=== PATIENT | female | born 1980 | race Caucasian/White ===

== ENCOUNTER 2025-01-20 11:55 | Emergency (ER) | payer OTHER ==
[~2025-01-20] VITALS: Ht 180.3 cm; Wt 61.1 kg
[2025-01-20] MEDS ORDERED: MAALOX MAXIMUM355 ML PO (12:07)
[2025-01-20 12:27] LABS: BASOPHILS 0.5 % (0.1-1.2); EOSINOPHILS 1.0 % (0.7-5.8); LYMPHOCYTES 20.2 % (19.3-51.7); MCH 30.7 PG (25.6-32.2); MCHC 33.3 g/dL (32.2-35.5); MCV 92.2 fL (79.4-94.8); MONOCYTES 3.6 % (4.7-12.5); NEUTROPHILS 74.5 % (34.0-71.1); RBC 4.72 M/uL (3.93-5.22)
[2025-01-20 12:41] LABS: BLOOD/HGB, URINE NEGATIVE (Negative); KETONE, URINE NEGATIVE (Negative); LEUK ESTERASE, URINE NEGATIVE (negative); NITRITE, URINE NEGATIVE (negative)
[2025-01-20 12:44] LABS: ALT (SGPT) 22.0 U/L (14-59); AST (SGOT) 18.0 U/L (15-37); GLOMERULAR FILTRATION RATE,EST 113.0 mL/min (>60); PROTEIN, TOTAL 7.5 g/dL (6.4-8.2); UREA NITROGEN 7.0 mg/dL (7-18)
[2025-01-20] MEDS ORDERED: MORPHINE SULFATE 4 MG/ML VIAL IV ONE (13:45)
[2025-01-20] MEDS ORDERED: HYDROCODONE/ACETA 5/325 TAB PO ONE (15:45)
[2025-01-20] MEDS ORDERED: ONDANSETRON 4 MG TAB ODT SL ONE (15:45)
[2025-01-20] MEDS ORDERED: ONDANSETRON ODT4 MG PO (15:47)
[2025-01-20] MEDS ORDERED: HYDROCODON-ACE1 EA10 PO (15:47)
[2025-01-20 16:00] VITALS: BP 98/74
== END 2025-01-20 16:00 | disposition home or self-care (01) ==
LOC: ED 11:55
PROVIDERS: Emergency Medicine
DX: R10.13 Epigastric pain (principal); Z96.49 Presence of other endocrine implants
CPT/HCPCS: 36415; 74177; 80053; 81003; 83690; 84703; 85025; 96375; 99284-25; A9270; J2270; J2405; Q9967

== ENCOUNTER 2025-02-25 23:26 | Inpatient (IN) | payer OTHER ==
[~2025-02-25] VITALS: Ht 180.3 cm; Wt 66.9 kg
[~2025-02-25 23:26] MED LIST: HYDROCODON-ACE1 EA10 PO; MAALOX MAXIMUM355 ML PO; ONDANSETRON ODT4 MG PO
[2025-02-25] MEDS ORDERED: PROBIOTIC1 EAC9 PO (23:39)
[2025-02-25] MEDS ORDERED: LACTATED RINGER'S 1,000 ML IV ONE (23:45)
[2025-02-25] MEDS ORDERED: KETOROLAC TROMETHAMINE 30 MG/ML VIAL IV ONE (23:45)
[2025-02-25] MEDS ORDERED: FAMOTIDINE 20 MG/ 2 ML VIAL IV ONE (23:45)
[2025-02-25 23:57] LABS: BASOPHILS 0.4 % (0.1-1.2); EOSINOPHILS 1.5 % (0.7-5.8); LYMPHOCYTES 18.2 % (19.3-51.7); MCH 30.8 PG (25.6-32.2); MCHC 33.9 g/dL (32.2-35.5); MCV 90.8 fL (79.4-94.8); MONOCYTES 4.6 % (4.7-12.5); NEUTROPHILS 74.9 % (34.0-71.1); RBC 4.77 M/uL (3.93-5.22)
[2025-02-26] VITALS (11 sets, daily range): BP systolic 93–106; BP diastolic 55–67
[2025-02-26 00:07] LABS: ALT (SGPT) 23 U/L (14-59); AST (SGOT) 16 U/L (15-37); GLOMERULAR FILTRATION RATE,EST 120 mL/min (>60); PROTEIN, TOTAL 7.7 g/dL (6.4-8.2); UREA NITROGEN 8 mg/dL (7-18)
[2025-02-26] MEDS ORDERED: HYDROmorphone HCL 1 MG/ML SYR IV PRN (00:30)
[2025-02-26] MEDS ORDERED: HYDROmorphone HCL 1 MG/ML SYR ONE (00:31)
[2025-02-26 00:41] LABS: BLOOD/HGB, URINE NEGATIVE (Negative); KETONE, URINE NEGATIVE (Negative); LEUK ESTERASE, URINE NEGATIVE (negative); NITRITE, URINE NEGATIVE (negative)
[2025-02-26] MEDS ORDERED: LACTATED RINGER'S 1,000 ML IV SCH ×3 (02:00→18:30)
[2025-02-26] MEDS ORDERED: MORPHINE SULFATE 4 MG/ML VIAL IV PRN ×3 (02:00→16:30)
--- NOTE | 2025-02-26 03:27 | NUR ---
PATIENT ADMITTED TO [facility] FROM ER. ORIENTED TO ROOM, PATIENT REPORTS 7/10 PAIN, GIVEN PRN PAIN MEDICATION PER REQUEST. PATIENT ABD IS TTP RUQ AND RLQ, NO DISTENTION. ACTIVE BOWEL TONES. RESPIRATIONS ARE EVEN AND UNLABORED, PATIENT ON TELE #9.
[2025-02-26] MEDS ORDERED: NICOTINE POLACRILEX 4 MG LOZENGE BUCCAL PRN (03:30)
--- NOTE | 2025-02-26 04:16 | NUR ---
PATIENT CALLED LETTING STAFF KNOW THAT SHE WENT TO THE RESTROOM TO VOID. THIS CONCRETE BUILDING ASSEMBLER IN TO THE ROOM. EMPTIED THE HAT WITH 150ML DARK YELLOW URINE. PATIENT IS ALREADY LAYING IN BED. IV PLUGGED IN.
--- NOTE | 2025-02-26 05:22 | NUR ---
CALL LIGHT ANSWERED, PRN PAIN MEDICATION ADMINISTERED FOR 9/10 PAIN PER PATIENT REQUEST. VS OBTAINED AND RECORDED, INTAKE AND OUTPUT DOCUMENTED. PATIENT REMAINS TENDER RUQ OF THE ABDOMEN BUT STATES IT DOES NOT RADIATE INTO HER ARMPIT ANYMORE. SHE DENIES ANY FURTHER NEEDS, CALL LIGHT IN REACH
[2025-02-26 05:41] LABS: BASOPHILS 0.7 % (0.1-1.2); EOSINOPHILS 2.5 % (0.7-5.8); LYMPHOCYTES 34.4 % (19.3-51.7); MCH 30.7 PG (25.6-32.2); MCHC 33.1 g/dL (32.2-35.5); MCV 92.8 fL (79.4-94.8); MONOCYTES 6.1 % (4.7-12.5); NEUTROPHILS 56.1 % (34.0-71.1); RBC 3.88 M/uL (3.93-5.22)
[2025-02-26 05:56] LABS: ALT (SGPT) 38.0 U/L (14-59); AST (SGOT) 34.0 U/L (15-37); GLOMERULAR FILTRATION RATE,EST 117.0 mL/min (>60); PROTEIN, TOTAL 5.9 g/dL (6.4-8.2); UREA NITROGEN 11.0 mg/dL (7-18)
--- NOTE | 2025-02-26 06:26 | NUR ---
ROUNDED ON PATIENT, PATIENT SLEEPING. RESPIRATIONS EVEN AND UNLABORED. IVF INFUSING WITHOUT DIFFICULTY. NO NEEDS, CALL LIGHT IN REACH
--- NOTE | 2025-02-26 07:17 | NUR ---
REPORT FROM JAIDA FRITZ.
--- NOTE | 2025-02-26 08:14 | NUR ---
MORNING ASSESSMENT IS COMPLETE. PATIENT REPORTS ABD PAIN 9/10 AND GIVEN 4MG OF IV MORPHINE. LR@200 IS INFUSING TO LEFT ARM, NEW BAG OF IVF HANGING. PATIENT IS OTHERWISE RESTING IN BED AND DENIES NEEDS. PATIENT WOULD LIKE INFORMATION ON PANCREATIC DIET/SUPPLEMENTS.
--- NOTE | 2025-02-26 09:32 | NUR ---
PATIENT REPORTS ABD PAIN IS 7/10 AFTER MEDICATION, DOWN FROM 9/10
[2025-02-26] MEDS ORDERED: ACETAMINOPHEN 325 MG TAB PO PRN (11:00)
--- NOTE | 2025-02-26 11:05 | NUR ---
INTO SEE PATIENT. PERSONAL HEALTH INFORMATION REVIEWED. PATIENT LIVES WITH AT [facility]. THEY JUST RECENTLY MOVED HERE FROM [place]. SHE STATED THEY ARE CURRENTLY TRYING TO GET HOUSE AND HOPING TO GET HOUSING THIS MONTH. GAVE HER INFORMATION ON THE [employer] [facility]. PATIENT DOES NOT USE ANY DME AND DOES DRIVE. GAVE HER FOOD PANTRY INFORMATION AND NUMBER TO CALL FOR [employer]. SHE SAID THEY HAD FOOD STAMPS IN [place] BUT JUST NEED TO SIGN UP AGAIN. ALSO GAVE HER INFORMATION FOR [employer] FOR RENT ASSISTANCE AND UTLITIES ASSISTANCE. STATES SHE HAS A PCP APPOINTMENT TO ESTABLISH CARE AT [facility] IN [place].
[2025-02-26] MEDS ORDERED: OXYCODONE HCL 5 MG TAB PO PRN (11:15)
--- NOTE | 2025-02-26 11:25 | NUR ---
SET PATIENT UP WITH A PCP AT [facility].
--- NOTE | 2025-02-26 11:27 | NUR ---
PATIENT IS SLEEPING, RESPIRATIONS ARE REGULAR.
[2025-02-26] MEDS ORDERED: PHARMACY RENAL DOSE ADJUSTMENT 1 DOSE MISC PO SCH (12:00)
--- NOTE | 2025-02-26 13:41 | NUR ---
PATIENT UP TO USE BATHROOM, TOOK IN 300ML OF CLEAR LIQUIDS, PATIENT VOMITED 300ML OF CLEARS. 4MG OF IV ZOFRAN GIVEN. 5MG PO OXYCODONE READY FOR PATIENT TO TAKE WHEN NAUSEA SUBSIDES.
--- NOTE | 2025-02-26 13:56 | NUR ---
PATIENT IN BED AT THIS TIME. PLATER BARREL CHARTED VITALS AND I&O'S. CALL LIGHT WITHIN REACH, NO FURTHER NEEDS.
--- NOTE | 2025-02-26 14:51 | NUR ---
PATIENT RESTING IN BED WITH EYES CLOSED. RESPIRATIONS EVEN AND UNLABORED. CALL LIGHT WITHIN REACH.
--- NOTE | 2025-02-26 15:50 | NUR ---
PATIENT RESTING IN BED WITH EYES CLOSED. RESPIRATIONS EVEN AND UNLABORED.
--- NOTE | 2025-02-26 16:21 | NUR ---
DR. ARRIAGA CHANGED PATIENT ORDERS. IVF IS LR @ 150ML/HR. COMPAZINE TO BE GIVEN WHEN PHARMACY VERIFIED.
--- NOTE | 2025-02-26 16:28 | NUR ---
PATIENT UP TO BATHROOM TO VOMIT SMALL AMOUNT. 10MG OF COMPAZINE FOR NAUSEA AND HEADACHE. PATIENT'S IS IN ROOM.
[2025-02-26] MEDS ORDERED: PROCHLORPERAZINE EDISYLATE 10 MG/2 ML VIAL IV ONE (16:30)
--- NOTE | 2025-02-26 17:44 | NUR ---
PATIENT IS SLEEPING WITH REGULAR RESPIRATIONS.
--- NOTE | 2025-02-26 18:32 | NUR ---
4MG OF IV MORPHINE GIVEN FOR 8/10 ABD PAIN. PATIENT REPORTS HEADACHE AND NAUSEA ARE IMPROVED AFTER COMPAZINE. PATIENT IS RESTING IN BED.
--- NOTE | 2025-02-26 19:22 | NUR ---
REPORT RECEIVED FROM DAY SHIFT RN. PT LYING IN BED RESTING WITH EYES CLOSED. RESPIRATIONS EVEN. WHITE BOARD UPDATED. CALL LIGHT IN REACH.
--- NOTE | 2025-02-26 20:34 | NUR ---
EVENING ASSESSMENT COMPLETE. PT REPORTS ABD PAIN 8/10 AND HEADACHE PAIN. NO PRN'S AVAILABLE. MD NOTIFIED. NEW TELEPHONE ORDERS RECEIVED VERIFIED WITH READBACK METHOD. PT DENIES NAUSEA. ABD SOFT. BOWEL TONES ACTIVE. PT NPO. IVF INFUSING PER ORDER. VS AND I&O OBTAINED. PT DENIES QUESTIONS OR CONCERNS. CALL LIGHT IN REACH.
[2025-02-26] MEDS ORDERED: MORPHINE SULFATE 4 MG/ML VIAL IV ONE (20:45)
[2025-02-26] MEDS ORDERED: ACETAMINOPHEN 1,000 MG/100 ML VIAL IV ONE (20:45)
--- NOTE | 2025-02-26 23:16 | NUR ---
PT RESTING IN BED WITH EYES CLOSED. RESPIRATIONS EVEN. CALL LIGHT IN REACH.
[2025-02-27] VITALS (11 sets, daily range): BP systolic 92–115; BP diastolic 52–79
--- NOTE | 2025-02-27 01:29 | NUR ---
CALL LIGHT ANSWERED. PT REPORTS ABD/HEADACHE PAIN 8/10 AND NAUSEA. PRN FOR N/V AND PAIN ADMIN PER EMAR. NEW BAG IVF INFUSING PER ORDER. VS AND I&O OBTAINED. ASSESSMENT UNCHANGED. PT DENIES FURTHER NEEDS. CALL LIGHT IN REACH.
--- NOTE | 2025-02-27 03:01 | NUR ---
PT RESTING ON RIGHT SIDE WITH EYES CLOSED. AWAKENS EASILY. SpO2 96% ON RA. HR 70'S. DENIES NEEDS. CALL LIGHT IN REACH.
--- NOTE | 2025-02-27 04:06 | NUR ---
PT RESTING IN BED WITH EYES CLOSED. RESPIRATIONS EVEN. CALL LIGHT IN REACH.
[2025-02-27 05:20] LABS: BASOPHILS 0.9 % (0.1-1.2); EOSINOPHILS 3.1 % (0.7-5.8); LYMPHOCYTES 33.0 % (19.3-51.7); MCH 31.1 PG (25.6-32.2); MCHC 33.4 g/dL (32.2-35.5); MCV 93.1 fL (79.4-94.8); MONOCYTES 4.6 % (4.7-12.5); NEUTROPHILS 58.1 % (34.0-71.1); RBC 3.50 M/uL (3.93-5.22)
--- NOTE | 2025-02-27 05:29 | NUR ---
LAB IN FOR MORNING DRAW. VS AND I&O OBTAINED. PT REPORTS 8/10 RUQ AND HEADACHE PAIN. PRN FOR PAIN ADMIN PER EMAR. NO C/O NAUSEA AT THIS TIME. NO FURTHER NEEDS. CALL LIGHT IN REACH.
[2025-02-27 05:30] LABS: GLOMERULAR FILTRATION RATE,EST 131.0 mL/min (>60); UREA NITROGEN 7.0 mg/dL (7-18)
[2025-02-27] MEDS ORDERED: LACTATED RINGER'S 1,000 ML IV SCH (06:20)
--- NOTE | 2025-02-27 08:31 | NUR ---
IN TO UPDATE WHITE BOARD. PATIENT IN BED RESTING WITH EYES CLOSED. CALL LIGHT IN REACH.
[2025-02-27] MEDS ORDERED: MAGNESIUM SULFATE 2 GM/50 ML BAG IV SCH (09:00)
--- NOTE | 2025-02-27 09:20 | NUR ---
Patient awake, alert and oriented x3, no acute distress. Patient reports 7/10 abdominal pain, no nausea. Admin morphine 4mg iv at this time. Encouraged patient to call if she has needs.
--- NOTE | 2025-02-27 09:29 | NUR ---
UR CLINICAL REVIEW: ZACKARY, MEETS INPT FOR PANCREATITIS IV ANALGESICS, IV ANTIEMETICS, IV FLUIDS, TREND LABS, CT POSITIVE FOR PANCREATITIS [facility] 02/26/2025 @ 1057 ORDER MATCHES REG SENDING CHART FOR REVIEW, AUTH PENDING. PLAN TO DC TO HOME WHEN MEDICALLY READY. 03/03/25
[2025-02-27] MEDS ORDERED: HYDROmorphone HCL 1 MG/ML SYR IV PRN (09:30)
--- NOTE | 2025-02-27 09:45 | NUR ---
MED REC COMPLETE
--- NOTE | 2025-02-27 10:14 | NUR ---
Patient reports n/v. Admin zofran 4mg iv at this time. Encouraged patient to wait a bit before she attempts eating ice chips, pt receptive to plan.
--- NOTE | 2025-02-27 10:55 | NUR ---
PATIENT SITTING UP IN BED AT THIS TIME. I&O'S DONE AND CHARTED. CALL LIGHT IN REACH. NO FURTHER NEEDS AT THIS TIME.
--- NOTE | 2025-02-27 11:10 | NUR ---
Patient sitting up in bed watching tv, no acute distress. Patient reports nausea has improved. Patient toleraing ice chips well. Scheduled magnesium started. No current needs, personal supplies and call light within reach.
--- NOTE | 2025-02-27 11:25 | NUR ---
Spoke with Anjelica. She denies needs. Cont. to have problems with housing. I gave her the phone number for [employer]. She has spoke with them in the past and they said they could not help. AFter further discussion this was when they were applying to get into the retirement. They are over income. I asked her to talk to them about assistance with housing and classes to buy a home. I attempted to call [facility]. Chava is out, I was requested to call back after 1 pm. I left a message asking if they can assist with housing at this time.
--- NOTE | 2025-02-27 12:30 | NUR ---
IN TO CHECK ON PATIENT, PT LAYING IN BED RESTING. DISCONTINUED IV TUBING MAGNESIUM IS DONE RUNNING. PATIENT NOW WITH SL. PATIENT GIVEN LUNCH TRAY, CLEAR LIQUIDS. DISCUSSED WITH PATIENT TO GO SLOW AND TAKE LITTLE SIPS TO PREVENT NAUSEA. PATIENT UNDERSTANDS. PATIENT HAS CALL LIGHT WITH IN REACH. PATIENT HAS NO NEEDS AT THIS TIME.
--- NOTE | 2025-02-27 13:35 | NUR ---
PATIENT IN BED AT THIS TIME. VITALS AND I&O'S DONE AND CHARTED. PATIENT REQUESTING NAUSEA MEDICATION, RN NOTIFIED. CALL LIGHT IN REACH. NO FURTHER NEEDS AT THIS TIME.L
--- NOTE | 2025-02-27 13:48 | NUR ---
Patient vomited approx 300ml clear emesis. Patient requesting pain medications for reported 9/10 abdominal pain. Patient encouraged to stop drinking fluids until she feels better, pt receptive to plan. Cool compress provided.
--- NOTE | 2025-02-27 15:05 | NUR ---
PATIENT RESTING ON HER SIDE WITH EYES CLOSED. CALL LIGHT WITH IN REACH.
--- NOTE | 2025-02-27 16:20 | NUR ---
PATIENT RESTING ON HER SIDE WITH EYES CLOSED. BREATHING EVEN. CALL LIGHT WITH IN REACH.
--- NOTE | 2025-02-27 16:46 | NUR ---
Admin dilaudid 0.5mg iv at this time for reports of 7/10 abdominal pain. Patient reports lessened nausea. Ice chips provided per pt request.
--- NOTE | 2025-02-27 17:44 | NUR ---
PATIENT SITTING UP IN BED WATCHING TV, VISITOR AT BEDSIDE. VITALS AND I&O'S DONE AND CHARTED. CALL LIGHT IN REACH. NO FURTHER NEEDS AT THIS TIME.
--- NOTE | 2025-02-27 19:25 | NUR ---
REPORT RECEIVED FROM DAY SHIFT RN. PT LYING IN BED ALERT AND ORIENTED. ICE CHIPS PROVIDED. NO FURTHER NEEDS. WHITE BOARD UPDATED. CALL LIGHT IN REACH.
--- NOTE | 2025-02-27 20:08 | NUR ---
EVENING ASSESSMENT COMPLETE. PT REPORTS RUQ/HEADACHE PAIN 02/18. PRN FOR PAIN ADMIN PER EMAR. PT DENIES NAUSEA. ISAIAH SMALL AMOUNTS OF CLEAR LIQUIDS. BOWEL TONES ACTIVE. PT REPORTS FLATUS. ABD SOFT. AT BEDSIDE. VS AND I&O OBTAINED. PT DENIES QUESTIONS OR CONCERNS. CALL LIGHT IN REACH.
--- NOTE | 2025-02-27 23:13 | NUR ---
PT C/O ABDOMINAL PAIN, MEDICATED WITH 0.5MG DILAUDID IVP. PT ALSO PROVIDED CRANBERRY JUICE. PT INSTRUCTED TO CALL FOR ASSISTANCE, SIDE RAILS UP X2, CALL GRANADOS IN REACH, BED IN LOW POSITION AND LOCKED.
[2025-02-28] VITALS (11 sets, daily range): BP systolic 93–112; BP diastolic 50–78
--- NOTE | 2025-02-28 00:47 | NUR ---
PT RESTING IN BED WITH EYES CLOSED. RESPIRATIONS EVEN. CALL LIGHT IN REACH.
--- NOTE | 2025-02-28 02:20 | NUR ---
CALL LIGHT ANSWERED. PT REPORTS 03/21 ABD CENTER ABD PAIN. PRN FOR PAIN ADMIN PER EMAR. WARM COMPRESS PROVIDED FOR COMFORT. ICE CHIPS GIVEN PER REQUEST. ASSESSMENT UNCHANGED. NO FURTHER NEEDS.
--- NOTE | 2025-02-28 03:40 | NUR ---
PT RESTING IN BED WITH EYES CLOSED. RESPIRATIONS EVEN. CALL LIGHT IN REACH.
[2025-02-28 05:32] LABS: BASOPHILS 0.6 % (0.1-1.2); EOSINOPHILS 3.3 % (0.7-5.8); LYMPHOCYTES 33.5 % (19.3-51.7); MCH 30.7 PG (25.6-32.2); MCHC 33.2 g/dL (32.2-35.5); MCV 92.5 fL (79.4-94.8); MONOCYTES 5.7 % (4.7-12.5); NEUTROPHILS 56.6 % (34.0-71.1); RBC 3.98 M/uL (3.93-5.22)
[2025-02-28 05:42] LABS: GLOMERULAR FILTRATION RATE,EST 122.0 mL/min (>60); UREA NITROGEN 5.0 mg/dL (7-18)
--- NOTE | 2025-02-28 06:05 | NUR ---
PT REPORTS 9/10 "SORENESS" IN CENTER OF ABD AND NAUSEA. PRN FOR PAIN AND N/V ADMIN PER EMAR. CLEAR LIQUIDS PROVIDED. PT TAKING SIPS OF WARM TEA. WARM COMPRESS PROVIDED FOR ABD. NO FURTHER NEEDS.
--- NOTE | 2025-02-28 07:51 | NUR ---
Patient resting in bed, eyes closed, respiration non labored. Personal supplies and call light within reach.
[2025-02-28] MEDS ORDERED: DEXTROSE 50% 50 ML SYR IV ONE (08:15)
--- NOTE | 2025-02-28 09:30 | NUR ---
Admin 0.5mg dilaudid iv for reports of 7/10 abdominal pain. Patient denies nausea.
--- NOTE | 2025-02-28 09:40 | NUR ---
ALERT AND ORIENTE DIN BED. STATES SHE IS FEELING A LITTLE BETTER TODAY AND HAS PERIODS OF NOT FEELING WELL STILL. DISCUSSED HOUSING DIFFICULTIES. PHONE NUMBER FOR [facility] PROVIDED. INFORMED HER THEY CURRENTLY HAVE NO ROOMS, BUT IT WOULD BE POTENTIALLY BENEFICIAL TO CONTINUE TO REACH OUT. DENIES OTHER NEEDS AT THIS TIME.
[2025-02-28] MEDS ORDERED: OXYCODONE HCL 5 MG TAB PO PRN (13:15)
--- NOTE | 2025-02-28 13:32 | NUR ---
VISITED DURING SPIRITUAL CARE ROUNDS. PT APPEARED TO BE SLEEPING. DID NOT DISTURB. PROVIDED PRAYER.
[2025-02-28] MEDS ORDERED: IBLOOD GLUCOSE TEST STRIP 1 EA TEST VI SCH (14:00)
--- NOTE | 2025-02-28 15:27 | NUR ---
IN TO CHECK ON PT, PT RESTING ON HER SIDE, EYES OPEN. DISCUSSED WITH PT SHE HAS BEEN PRESCRIBED PO PAIN MEDICATION. PT UNDERSTANDS AND REMEMBERS DISCUSSING THIS WITH THE DOCTOR. EXPLAINED AT HER NEXT PAIN MEDICATION REQUEST WE WILL USE THE PO. PT IS A LITTLE EARLY FOR PAIN MEDICATION RIGHT NOW, BUT ENCOURAGED PT TO USE CALL LIGHT IF NEEDED. PT DID EAT HER POPSICLE AND DENIES NAUSEA. PT HAS NO NEEDS AT THIS TIME.
--- NOTE | 2025-02-28 16:02 | NUR ---
Admin oxycodone 5mg po and zofran 4mg iv for reports of nausea nd 5/10 abdominal pain.
--- NOTE | 2025-02-28 19:55 | NUR ---
PT IN BED WATCHING TV, AT BEDSIDE. VERBALIZED FEELING BETTER AFTER BEING ABLE TO KEEP DOWN SOME ICECREAM. DENIES NEED AT THIS TIME. CALL LIGHT IN REACH.
--- NOTE | 2025-02-28 20:20 | NUR ---
PT IN BED, AT BED SIDE. VITAL SIGNS TAKEN AND RECORDED. ACCUCHECK DONE. DENIES NEED AT THIS TIME. CALL LIGHT IN REACH.
--- NOTE | 2025-02-28 22:30 | NUR ---
CALL LIGHT ANSWERED. PATIENT REPORTS 9/10 ABD PAIN, REQUESTING PAIN MEDICATION. PRN PAIN MEDICATION ADMINISTERED PER ORDER. PATIENT DENIES ANY FURTHER NEEDS, CALL LIGHT IN REACH
--- NOTE | 2025-02-28 23:34 | NUR ---
PT RESTING IN BED, VERBALIZED PAIN HAS GONE DOWN TO 6/10 AFTER PAIN MEDICATION, HOT PACK PROVIDED PER PT REQUEST. DENIES NEEDS, CALL LIGHT IN REACH.
--- NOTE | 2025-03-01 02:20 | NUR ---
ROUNDED ON PATIENT, PATIENT RESTING WITH EYES CLOSED, RESPIRATIONS EVEN AND UNLABORED. WOKE TO OBTAIN CBG. PATIENT AMBULATED TO RESTROOM WITHOUT ASSISTANCE, BACK TO BED WITHOUT DIFFICULTY. NO FURTHER NEEDS, CALL LIGHT IN REACH
--- NOTE | 2025-03-01 03:45 | NUR ---
PT RESTING IN BED. RESPIRATIONS EVEN AND UNLABORED. NO NEEDS NOTED AT THIS TIME. CALL LIGHT IN REACH.
[2025-03-01 05:31] LABS: GLOMERULAR FILTRATION RATE,EST 126.0 mL/min (>60); UREA NITROGEN 6.0 mg/dL (7-18)
[2025-03-01 05:46] VITALS: BP 100/53
[2025-03-01 05:48] VITALS: BP 100/53
[2025-03-01 06:05] LABS: BASOPHILS 0.7 % (0.1-1.2); EOSINOPHILS 4.1 % (0.7-5.8); LYMPHOCYTES 30.9 % (19.3-51.7); MCH 30.5 PG (25.6-32.2); MCHC 33.5 g/dL (32.2-35.5); MCV 91.1 fL (79.4-94.8); MONOCYTES 6.6 % (4.7-12.5); NEUTROPHILS 57.5 % (34.0-71.1); RBC 3.93 M/uL (3.93-5.22)
--- NOTE | 2025-03-01 06:07 | NUR ---
PT RESTING IN BED, VITAL SIGNS TAKEN AND RECORDED. INTAKE AND OUTPUT RECORDED. PT REPORTED TOLERATING PO INTAKE. STILL REPORTS EPIGASTRIC DISCOMFORT BUT MORE TOLERABLE. DENIES NEEDS, CALL LIGHT IN REACH.
--- NOTE | 2025-03-01 07:11 | NUR ---
REPORT RECEIVED FROM LAM THURSTON. PATIENT IN BED, EYES CLOSED, CHEST RISE EVEN AND UNLABORED. CALL LIGHT AND PERSONAL BELONGINGS IN REACH OF PATIENT. NO APPARENT NEEDS NOTED AT THIS TIME.
--- NOTE | 2025-03-01 08:30 | NUR ---
PATIENT IN BED WITH HOB RAISED, EYES OPEN, CHEST RISE EVEN AND UNLABORED. PATIENT TEARFUL. PATIENT REPORTS SHE HAS QUESTIONS REGARDING PAIN MEDICATION, DIET, AND PLAN FOR DISCAHRGE. THERAPEUTIC COMMUNICATION AND EUDCATION PROVIDED. PATIENT VERBALIZED UNDERSTANDING AND DENIES FURTHER QUESTIONS AT THIS TIME. PATIENT REPORTS 8/10 PAIN, PRN PAIN MEDICATION ADMINISTERED AT PATIENT'S REQUEST. PATIENT DENIES FURTHER CONCERNS AT THIS TIME.
[2025-03-01 09:22] VITALS: BP 111/67
--- NOTE | 2025-03-01 09:30 | NUR ---
PATIENT IN BED WITH HOB RAISED, EYES OPEN, CHEST RISE EVEN AND UNLABORED. ASSESMENT COMPLETED. PATIENT DENIES CONCERNS AT THIS TIME. PATIENT REPORTS PAIN 5/10 AND NOTES SHE HAD JUST GOTTEN OUT OF BED. CALL LIGHT AND PERSONAL BELONGINGS IN REACH OF PATIENT.
[2025-03-01 09:31] VITALS: BP 111/67
--- NOTE | 2025-03-01 09:55 | NUR ---
INTO SEE PATIENT. PATIENT TO GO WITH AT TIME OF DISCHARGE. PATIENT HAS ALL OF THE RESOURCES THE CM TEAM HAS GIVEN THEM. NO QUESTIONS AT THIS TIME.
--- NOTE | 2025-03-01 10:44 | NUR ---
PATIENT SAID SHE TOOK A SHOWER LAST NIGHT. THIS MORING SHE SAID SHE DID HER AM CARE. SHE SAID ALSO IF SHE GETS TO GO HOME TODAY SHE WILL TAKE A SHOWER AT HOME. PATIENT IS INDEPENDENT.
--- NOTE | 2025-03-01 10:45 | NUR ---
PATIENT IN BED, EYES OPEN, CHEST RISE EVEN AND UNLABORED. PATIENT REPORTS SHE WOULD LIKE TO KEEP HER CURTIANS CLOSED AT THIS TIME. PATIENT INQUIRES ABOUT DIETARY CHANGES TO LOW FAT DIET. PATIENT EDUCATION PROVIDED ON DIETARY RESOURCES OUTSIDE OF HOSPITAL AND [facility], WRITTEN EDUCATIONAL INFORMATION AT BEDSIDE. PATIENT REPORTS WRITTEN RESOURCE WAS PROVIDED AT ADMISSION. PATIENT VERBALIZED UNDERSTANDING AND DENIES FURTHER QUESTIONS AT THIS TIME. PRN PAIN MEDICATION PROVIDED, PATIENT REPORTS 5/10 PAIN. PATIENT EDUCATION PROVIDED REGARDING PAIN MANAGMENT AFTER DISCHARGE. PATIENT DENIES FURTHER CONCERNS AT THIS TIME. CALL LIGHT AND PERSONAL BELONGINGS IN REACH OF PATIENT.
--- NOTE | 2025-03-01 12:33 | NUR ---
PATIENT IN BED, EYES OPEN, CHEST RISE EVEN AND UNLABORED. PATIENT DENIES CONCERNS AT THIS TIME. CALL LIGHT AND PERSONAL BELONGINGS IN REACH OF PATIENT. PATIENT EDUCATION PROVIDED TO NOTIFY NURSING ON HOW PATIENT TOLERATES REGULAR DIET AT LUNCH. PATIENT VERBALIZED UNDERSTANDING.
--- NOTE | 2025-03-01 12:57 | NUR ---
PATIENT IN BED, EYES OPEN, CHEST RISE EVEN AND UNLABORED. PATIENT DENIES CONCERNS AT THIS TIME. PATIENT ATE 100% OF REGULAR DIET, REPORTS SHE FEELS "GOOD" RIGHT NOW. PATIENT IS LOOKING FORWARD TO DISCHARGE AND DENIES CONCERNS AT THIS TIME. CALL LIGHT AND PERSONAL BELONGINGS IN REACH OF PATIENT.
[2025-03-01] MEDS ORDERED: OXYCODONE HCL5 M1 PO (13:03)
[2025-03-01 13:35] VITALS: BP 102/60
[2025-03-01 13:39] VITALS: BP 102/60
--- NOTE | 2025-03-01 13:40 | NUR ---
PATIENT IN BED, EYES OPEN, CHEST RISE EVEN AND UNLABORED. REVIEWED DISCHARGE ORDERS ARE IN PLACE. PATIENT VERBALIZED UNDERSTANDING. PATIENT REPORTS HER IS ON THE WAY. PATIENT REPORTS HER WILL PICK HER UP AND DRIVE HER HOME. VITAL SIGNS AND MEWS COMPLETED. PATIENT DENIES CONCERNS AT THIS TIME. CALL LIGHT AND PERSONAL BELONGINGS IN REACH OF PATIENT.
--- NOTE | 2025-03-01 14:25 | NUR ---
TOOK PATIENT'S IV OUT.
--- NOTE | 2025-03-01 14:39 | NUR ---
PATIENT SITTING AT SIDE OF BED, EYES OPEN, CHEST RISE EVEN AND UNLABORED. AT BEDSIDE. PATIENT REPORTS SHE IS READY FOR DISCHARGE. IV HAS BEEN REMOVED. THIS RN REVIEWED DISCAHRGE INFORMATION AND TEACHING WITH AND PATIENT. THEY VERBALIZED UNDERSTANDING AND DENY QUESTIONS AT THIS TIME. PATIENT SIGNATURE PAGE COMPLETE. DISCHARGE INFORMATION WITH PATIENT. PATIENT OFF FLOOR WITH QUALITY CONTROL ENGINEER FOR DISCHARGE.
== END 2025-03-01 14:37 | disposition home or self-care (01) | DRG 438 ==
LOC: ED 23:26 → MS 23:28
PROVIDERS: Internal Medicine; ADMIT Student in an Organized Health Care Education/Training Program; ATTEND Student in an Organized Health Care Education/Training Program
DX: K85.80 Other acute pancreatitis without necrosis or infection (principal); I81 Portal vein thrombosis; I87.1 Compression of vein; K86.1 Other chronic pancreatitis; F17.210 Nicotine dependence, cigarettes, uncomplicated; Z96.89 Presence of other specified functional implants
CPT/HCPCS: 36415; 74177; 80048; 80053; 81003; 83690; 83735; 84703; 85025; 96374; 96375; 96376; 99285-25; A9270; J0131; J0780; J1171; J1885; J2270; J2405; J3475; J7121

== ENCOUNTER 2025-03-24 15:48 | Emergency (ER) | payer OTHER ==
[~2025-03-24] VITALS: Ht 180.3 cm; Wt 61.0 kg
[~2025-03-24 15:48] MED LIST changes: +OXYCODONE HCL5 M1 PO; +PROBIOTIC1 EAC9 PO
--- OUTSIDE RECORDS SUMMARY | 2025-03-24 15:49 | XMS ---
PreManage Notification: ZAN MAGUIRE Security Dental Technician Apprentice Events No recent Security Events currently on file CRITERIA MET - [facility] - 2 Visits in 30 Days CARE PROVIDERS JODY SHORE [facility] Current PHONE: Unknown MATTY RODRÍGUEZ Nurse Practitioner: Family Current PHONE: [phone] [facility]/Center: [facility] ([facility]) PHONE: [phone] Jay has no Care Guidelines for this patient. E.D. VISIT COUNT (12 MO.) 3 [facility] Page 2 [facility] [place] TOTAL 5 NOTE: Visits indicate total known visits. ED/UCC VISIT TRACKING (12 MO.) 03/24/2025 15:49 [facility] [place] TYPE: Emergency COMPLAINT: - ABDOMINAL PAIN 02/25/2025 23:27 [facility] [place] TYPE: Emergency COMPLAINT: - ABD PAIN 01/20/2025 11:[address] [facility] [place] TYPE: Emergency COMPLAINT: - ABDOMINAL PAIN DIAGNOSES: - Epigastric pain - Presence of other endocrine implants 10/17/2024 13:27 [facility] [place] TYPE: Emergency DIAGNOSES: - Anxiety disorder, unspecified - Palpitations - Tachycardia, unspecified - Headache - Vision Problems, Hands and feet cold 10/12/2024 21:48 [facility] [place] TYPE: Emergency DIAGNOSES: - Acute pancreatitis without necrosis or infection, unspecified - Diarrhea, unspecified - Nausea with vomiting, unspecified - Abdominal Pain - Pancreatitis Flare up: abdominal pain INPATIENT VISIT TRACKING (12 MO.) 02/26/2025 10:[address] [facility] [place] TYPE: Medical Surgical COMPLAINT: - ACUTE ON CHRONIC PANCREATITIS DIAGNOSES: - Compression of vein - Compression of vein - Nicotine dependence, cigarettes, uncomplicated - Nicotine dependence, cigarettes, uncomplicated - Other acute pancreatitis without necrosis or infection - Other chronic pancreatitis - Other chronic pancreatitis - Portal vein thrombosis - Portal vein thrombosis - Presence of other specified functional implants - Presence of other specified functional implants [email or web address]
[2025-03-24 17:19] LABS: ALT (SGPT) 19 U/L (14-59); AST (SGOT) 16 U/L (15-37); GLOMERULAR FILTRATION RATE,EST 115 mL/min (>60); PROTEIN, TOTAL 7.4 g/dL (6.4-8.2); UREA NITROGEN 9 mg/dL (7-18)
[2025-03-24 17:24] LABS: BASOPHILS 0.5 % (0.1-1.2); EOSINOPHILS 0.8 % (0.7-5.8); LYMPHOCYTES 13.6 % (19.3-51.7); MCH 30.6 PG (25.6-32.2); MCHC 34.1 g/dL (32.2-35.5); MCV 89.9 fL (79.4-94.8); MONOCYTES 4.2 % (4.7-12.5); NEUTROPHILS 80.6 % (34.0-71.1); RBC 3.95 M/uL (3.93-5.22)
[2025-03-24] MEDS ORDERED: KETOROLAC TROMETHAMINE 15 MG/ML VIAL IV ONE (18:00)
[2025-03-24] MEDS ORDERED: SODIUM CHLORIDE 0.9% 1,000 ML IV ONE (18:00)
[2025-03-24] MEDS ORDERED: HYDROmorphone HCL 1 MG/ML SYR IV PRN (18:00)
[2025-03-24] MEDS ORDERED: HYDROCODON-ACE1 EA10 PO ×2 (19:15)
[2025-03-24] MEDS ORDERED: ONDANSETRON 4 MG HOME.PACK SL ONE (19:15)
[2025-03-24] MEDS ORDERED: HYDROCODONE BIT/ACETAMINOPHEN 5/325 MG 1 TAB HOME.PACK PO ONE (19:15)
[2025-03-24 19:35] VITALS: BP 106/79
== END 2025-03-24 19:39 | disposition home or self-care (01) ==
LOC: ED 15:48
PROVIDERS: Emergency Medicine
DX: K85.90 Acute pancreatitis without necrosis or infection, unspecified (principal); Z79.899 Other long term (current) drug therapy
CPT/HCPCS: 36415; 80053; 83690; 84703; 85025; 96374; 96375; 99284-25; J1171; J1885; J2405; J7030

== ENCOUNTER 2025-03-26 08:32 | Inpatient (IN) | payer OTHER ==
[~2025-03-26] VITALS: Ht 180.3 cm; Wt 60.6 kg
--- OUTSIDE RECORDS SUMMARY | 2025-03-26 08:33 | XMS ---
PreManage Notification: ZAN MAGUIRE Security Braille Typist Events No recent Security Events currently on file CRITERIA MET - 6 ED Visits in 6 Months - [facility] - 2 Visits in 30 Days CARE PROVIDERS JODY SHORE [facility] Current PHONE: Unknown MATTY RODRÍGUEZ Nurse Practitioner: Family Current PHONE: [phone] [facility]/Center: [facility] ([facility]) PHONE: [phone] Jay has no Care Guidelines for this patient. E.D. VISIT COUNT (12 MO.) 4 HARPAL Page 2 [facility] [place] TOTAL 6 NOTE: Visits indicate total known visits. ED/UCC VISIT TRACKING (12 MO.) 03/26/2025 08:32 [facility] [place] TYPE: Emergency COMPLAINT: - ABDOMINAL PAIN 03/24/2025 15:49 [facility] [place] TYPE: Emergency COMPLAINT: - ABDOMINAL PAIN 02/25/2025 23:27 [facility] [place] [place] TYPE: Emergency COMPLAINT: - ABD PAIN 01/20/2025 11:56 [facility] [place] TYPE: Emergency COMPLAINT: - ABDOMINAL PAIN DIAGNOSES: - Epigastric pain - Presence of other endocrine implants 10/17/2024 13:27 [facility] [place] TYPE: Emergency DIAGNOSES: - Anxiety disorder, unspecified - Palpitations - Tachycardia, unspecified - Headache - Vision Problems, Hands and feet cold 10/12/2024 21:48 [facility] [place] TYPE: Emergency DIAGNOSES: - Acute pancreatitis [...] - Presence of other specified functional implants [email or web address]
[2025-03-26] MEDS ORDERED: SODIUM CHLORIDE 0.9% 1,000 ML IV ONE (09:15)
[2025-03-26] MEDS ORDERED: HYDROmorphone HCL 1 MG/ML SYR IV PRN ×2 (09:15→12:45)
[2025-03-26] MEDS ORDERED: ONDANSETRON ODT4 MG PO (09:19)
[2025-03-26 09:29] LABS: BASOPHILS 0.3 % (0.1-1.2); EOSINOPHILS 0.4 % (0.7-5.8); LYMPHOCYTES 6.2 % (19.3-51.7); MCH 30.6 PG (25.6-32.2); MCHC 33.5 g/dL (32.2-35.5); MCV 91.4 fL (79.4-94.8); MONOCYTES 4.7 % (4.7-12.5); NEUTROPHILS 88.0 % (34.0-71.1); RBC 4.05 M/uL (3.93-5.22)
[2025-03-26 09:54] LABS: ALT (SGPT) 15.0 U/L (14-59); AST (SGOT) 11.0 U/L (15-37); GLOMERULAR FILTRATION RATE,EST 119.0 mL/min (>60); PROTEIN, TOTAL 7.0 g/dL (6.4-8.2); UREA NITROGEN 7.0 mg/dL (7-18)
[2025-03-26] MEDS ORDERED: HYDROmorphone HCL 1 MG/ML SYR IV ONE (10:15)
[2025-03-26 10:52] LABS: BLOOD/HGB, URINE TRACE-I (Negative); KETONE, URINE >=80 (Negative); LEUK ESTERASE, URINE NEGATIVE (negative); NITRITE, URINE NEGATIVE (negative)
[2025-03-26 11:16] LABS: BACTERIA, URINE NONE SEEN /hpf (negative); CASTS, URINE NONE SEEN \\lpf; CRYSTALS, URINE NONE SEEN (0-1+); EPITHELIAL CELLS, URINE SQUAMOUS 4+ /lpf (0-1+); REFLEX CULTURE, URINE No (No)
[2025-03-26] MEDS ORDERED: SODIUM CHLORIDE 0.9% 1,000 ML IV SCH (12:30)
[2025-03-26] MEDS ORDERED: ACETAMINOPHEN 325 MG TAB PO PRN (12:30)
[2025-03-26] MEDS ORDERED: PANTOPRAZOLE SODIUM 40 MG TABEC PO SCH (12:36)
--- NOTE | 2025-03-26 13:45 | NUR ---
PT ARRIVED TO ROOM VIA STRETCHER FROM ED. PT ABLE TO AMBULATE TO BED FROM STRETCHER. C/O 10 ABDOMINAL PAIN RADIATING TO BACK. PT MEDICATED WITH 1MG IVP DILAUDID. PT DENIES NAUSEA AT THIS TIME. PROVIDED ORAL PPI ORDERED. PT ORIENTED TO ROOM AND CALL GRANADOS. SIDE RAILS UP X2, BED IN LOW POSITION AND LOCKED. PT INSTRUCTED TO CALL FOR ASSISTANCE.
[2025-03-26 13:54] VITALS: BP 102/61
--- NOTE | 2025-03-26 14:15 | NUR ---
INTO SEE PATIENT. PERSONAL HEALTH INFORMATION REVIEWED. PATIENT LIVES WITH KENDRA AT THE [facility]. THEY HAVE BEEN LOOKING FOR HOUSING. STATES SHE WAS GOING TO PUT AN APPLICATION IN THIS WEEK ON WEDNESDAY FOR AN APARTMENT. 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 DOES NOT USE ANY DME. SHE DRIVES. PATIENT HAS AN APPOINTMENT TO ESTABLISH CARE WITH A PCP ON 03/29/25.
--- NOTE | 2025-03-26 15:30 | NUR ---
PT IS AWAKE IN BED, DENIES NEEDS AT THIS TIME. CALL LIGHT IN REACH
[2025-03-26 17:31] VITALS: BP 105/65
--- NOTE | 2025-03-26 17:36 | NUR ---
PT C/O PAIN 03/21 TO ABDOMEN/BACK. PT MEDICATED WITH 1MG DILAUDID IVP. CALL GRANADOS IN REACH, BED IN LOW POSITION AND LOCKED, SIDERAILS UP X2. PT INSTRUCTED TO CALL FOR ASSISTANCE PRN.
[2025-03-26 18:14] VITALS: BP 105/65
--- NOTE | 2025-03-26 18:51 | NUR ---
PT RESTING IN BED AWAKE. DENIES NEEDS. CALL LIGHT IN REACH.
--- NOTE | 2025-03-26 19:42 | NUR ---
REPORT RECEIVED FROM DAY SHIFT RN. PT LYING IN BED ALERT AND ORIENTED. DENIES NEEDS. WHITE BOARD UPDATED. CALL LIGHT IN REACH.
[2025-03-26 21:09] VITALS: BP 102/54
[2025-03-26 21:11] VITALS: BP 102/54
--- NOTE | 2025-03-26 21:30 | NUR ---
EVENING ASSESSMENT COMPLETE. PT REPORTS ABD PAIN 9/10 AND NAUSEA. PRN'S ADMIN PER EMAR. NEW BAG IVF INFUSING WNL. PT UP TO BR TO VOID 150 ML CONCENTRATED URINE. GAIT STEADY. BACK TO BED, ISAIAH WELL. VS AND I&O OBTAINED. PT DENIES QUESTIONS OR CONCERNS. CALL LIGHT IN REACH.
[2025-03-27] VITALS (10 sets, daily range): BP systolic 92–103; BP diastolic 46–59
--- NOTE | 2025-03-27 00:29 | NUR ---
PT AWAKE IN BED. UP TO BR TO VOID. DENIES NEEDS. CALL LIGHT IN REACH.
--- NOTE | 2025-03-27 02:15 | NUR ---
PT RESTING IN BED WITH EYES CLOSED. AWAKENS EASILY. VS AND I&O OBTAINED. PT REPORTS ABD PAIN 02/18. PRN FOR PAIN ADMIN. NO C/O NAUSEA AT THIS TIME. ASSESSMENT UNCHANGED. PT DENIES NEEDS. CALL LIGHT IN REACH.
--- NOTE | 2025-03-27 04:10 | NUR ---
PT RESTING IN BED WITH EYES CLOSED. RESPIRATIONS EVEN. CALL LIGHT IN REACH.
[2025-03-27 05:24] LABS: BASOPHILS 0.7 % (0.1-1.2); EOSINOPHILS 2.9 % (0.7-5.8); LYMPHOCYTES 30.9 % (19.3-51.7); MCH 31.0 PG (25.6-32.2); MCHC 33.1 g/dL (32.2-35.5); MCV 93.6 fL (79.4-94.8); MONOCYTES 6.2 % (4.7-12.5); NEUTROPHILS 59.0 % (34.0-71.1); RBC 3.26 M/uL (3.93-5.22)
--- NOTE | 2025-03-27 05:40 | NUR ---
LAB IN FOR MORNING DRAW. VS OBTAINED. PT REPORTS PAIN IS TOLERABLE AT THIS TIME. PT DENIES NEEDS. CALL LIGHT IN REACH.
[2025-03-27 05:42] LABS: ALT (SGPT) 13.0 U/L (14-59); AST (SGOT) 10.0 U/L (15-37); GLOMERULAR FILTRATION RATE,EST 128.0 mL/min (>60); PROTEIN, TOTAL 5.6 g/dL (6.4-8.2); UREA NITROGEN 6.0 mg/dL (7-18)
[2025-03-27] MEDS ORDERED: POTASSIUM BICARBONATE/CIT AC 20 MEQ TABEF PO ONE (06:30)
--- NOTE | 2025-03-27 06:42 | NUR ---
PT UP TO BR TO VOID. BACK TO BED, ISAIAH WELL. REPORTS ABD PAIN 03/21. PRN FOR PAIN ADMIN. SCHEDULED MEDS GIVEN. NO FURTHER NEEDS.
--- NOTE | 2025-03-27 07:06 | NUR ---
VERBAL REPORT RECIVED BY LAM DOMINGUEZ. PT SITTING UP IN BED AWAKE. NO NEEDS AT THIS TIME. CALL LIGHT IN REACH.
--- NOTE | 2025-03-27 09:13 | NUR ---
IN THE ROOM WITH PATIENT. DR. GRANADOS DISCUSSING POC WITH PATIENT AND FAMILY. RECIVED VERBAL ORDERS FROM FOR CLEAR LIQUID DIET AT THIS TIME, WILL ADVANCE IF TOLERATED. CALL LIGHT IN REACH. NO FURTHER NEEDS AT THIS TIME.
--- NOTE | 2025-03-27 09:38 | NUR ---
UR CLINICAL REVIEW: MCG-PER MCG REVIEW MEETS INPT FOR ABD PAIN WITH NEED FOR BOWEL REST AND IVF. [facility] 03/26/25 @ 1237 ORDER MATCHES REG CLINICALS FAXED TO [facility] FOR AUTH REVIEW DISCHARGE TO HOME WHEN STABLE. ADD 03/28/25 03/28/25 DC REVIEW
--- NOTE | 2025-03-27 09:43 | NUR ---
MORNING LABS SHOWED GLUCOSE OF 59. CHECKED BS AT THIS TIME IT IS 52. 240ML OF APPLE JUICE PROVIDED AT THIS TIME. PATIENT STATES "THIS IS NORMAL FOR ME" NOTIFIED, NO NEW ORDERS AT THIS TIME. DIETARY NOTFIED TO BRING UP CLEAR LIQUID TRAY AT THIS TIME.
[2025-03-27] MEDS ORDERED: IBLOOD GLUCOSE TEST STRIP 1 EA TEST VI ONE (09:45)
--- NOTE | 2025-03-27 10:00 | NUR ---
Spoke with Anjelica and her so Gibran. They cont. to struggle financially. They are both working. They live between hotels and their car. They plan to remain in their car x 1 week to save money for a deposit. They are looking for housing. Pt is feeling better today and will start clear liq today. May be able to dc tomorrow if she is able to tolerate eating. Pt cont. with needs for housing. They are over income and do not qualify for low income housing. Pts spouse is upset as he has a dog and cat in the car and he spends time in the car. He complains security keeps asking him to leave as they believe he is homeless. I let him know I will pass this on to the warehouse packaging supervisor and management. Pt denies needs a this time. Pts housing issues was discussed with other CM. Calls were made, there is no openings at this time that any of us can find that would not require a substantial deposit.
--- NOTE | 2025-03-27 10:56 | NUR ---
PATIENT GIVEN PO PROTONIX AND 1MG OF IV DILAUDID FOR 9/10 ABDOMINAL PAIN.
--- NOTE | 2025-03-27 11:14 | NUR ---
IN ROOM WITH PATIENT.MORNING ASSESSMENT COMPLETE. EDUCATED ON SIGNS OF HYPOGLYCEMIA, PATIENT VERBALIZES UNDERSTANDING. IVF RUNNNING. PATIENTS SITTING UP WATCHING TV. CALL LIGHT IN REACH.
[2025-03-27] MEDS ORDERED: PHARMACY RENAL DOSE ADJUSTMENT 1 DOSE MISC PO SCH (12:00)
--- NOTE | 2025-03-27 12:10 | NUR ---
PATIENT UP IN BED EATING LUNCH, WATCHING TV. PATIENT HAS NO REQUESTS AT THIS TIME. CALL LIGHT IN REACH.
--- NOTE | 2025-03-27 12:30 | NUR ---
Elvia Matias stopped by our office. She issued a parking pass and a visitor pass for pts spouse. She also has sent emails to friends who manage apartments to check for apartments for this pt. Family discussed with her their concerns for housing.
--- NOTE | 2025-03-27 13:26 | NUR ---
ANSWERED CALL LIGHT. NEW IV BAG STARTED. PT RESTING IN BED. CALL LIGHT WITH IN REACH. NO NEEDS AT THIS TIME.
--- NOTE | 2025-03-27 13:45 | NUR ---
PT RESTING IN BED AWAKE, BREATHING OH AND UNLABORED . CALL LIGHT IN REACH. NO NEEDS AT THIS TIME.
--- NOTE | 2025-03-27 14:41 | NUR ---
IN THE ROOM PATIENT COMPLAINS OF 8/10 LEFT ABDOMINAL PAIN. PATIENT RECIVED PAIN PILLS (SEE EMAR). PATIENT HAS NO FURTHER NEEDS AT THIS TIME. CALL LIGHT IN REACH.
--- NOTE | 2025-03-27 18:20 | NUR ---
PT AWAKE IN BED, ABD PAIN 8/10, PRN PAIN MEDICATION ADMINISTERED (PER EMAR). WAS UNABLE TO EAT DINNER DUE TO CONCERNS OF BEING FLARED UP. SANDWICH BOX PROVIDED AND SHADY. NO FURTHER NEEDS AT THIS TIME. CALL LIGHT IN REACH
--- NOTE | 2025-03-27 19:37 | NUR ---
REPORT RECEIVED FROM DAY SHIFT RN. PT LYING IN BED ALERT AND ORIENTED. DENIES NEEDS. WHITE BOARD UPDATED. CALL LIGHT IN REACH.
--- NOTE | 2025-03-27 20:24 | NUR ---
EVENING ASSESSMENT COMPLETE. PT REPORTS SLIGHT NAUSEA. PRN FOR N/V ADMIN PER EMAR. PT REPORTS ABD PAIN TOLERABLE. BOWEL TONES ACTIVE. ABD SOFT. VS AND I&O OBTAINED. PT DENIES QUESTIONS OR CONCERNS. CALL LIGHT IN REACH.
[2025-03-27] MEDS ORDERED: HYDROCODONE/ACETA 5/325 TAB PO PRN (20:45)
--- NOTE | 2025-03-27 21:09 | NUR ---
IV SL PER MD ORDER. PT REPORTS ABD PAIN 03/21. PRN FOR PAIN ADMIN PER EMAR. BLOOD SUGAR CHECKED PER PT REQUEST-111. FAMILY IN ROOM. NO FURTHER NEEDS.
--- NOTE | 2025-03-28 00:01 | NUR ---
PT RESTING IN BED WITH EYES CLOSED. RESPIRATIONS EVEN. CALL LIGHT IN REACH.
--- NOTE | 2025-03-28 02:16 | NUR ---
PT AWAKE IN BED. VS OBTAINED. FRESH WATER PROVIDED. PT REPORTS ABD PAIN TOLERABLE. DENIES NAUSEA. ASSESSMENT UNCHANGED. NO NEEDS AT THIS TIME. CALL LIGHT IN REACH.
[2025-03-28 02:17] VITALS: BP 93/53
[2025-03-28 02:18] VITALS: BP 93/53
[2025-03-28 05:24] VITALS: BP 101/58
[2025-03-28 05:26] VITALS: BP 101/58
[2025-03-28 05:28] LABS: BASOPHILS 0.7 % (0.1-1.2); EOSINOPHILS 3.5 % (0.7-5.8); LYMPHOCYTES 26.7 % (19.3-51.7); MCH 30.4 PG (25.6-32.2); MCHC 33.0 g/dL (32.2-35.5); MCV 92.0 fL (79.4-94.8); MONOCYTES 5.6 % (4.7-12.5); NEUTROPHILS 63.3 % (34.0-71.1); RBC 3.26 M/uL (3.93-5.22)
--- NOTE | 2025-03-28 05:31 | NUR ---
PT RESTING WITH EYES CLOSED. AWAKENS EASILY. VS AND I&O OBTAINED. PT REPORTS ABD PAIN 03/21. PRN FOR PAIN ADMIN PER EMAR. NO C/O NAUSEA AT THIS TIME. LAB IN FOR MORNING DRAW. NO FURTHER NEEDS.
[2025-03-28 05:46] LABS: ALT (SGPT) 11.0 U/L (14-59); AST (SGOT) 11.0 U/L (15-37); GLOMERULAR FILTRATION RATE,EST 126.0 mL/min (>60); PROTEIN, TOTAL 5.3 g/dL (6.4-8.2); UREA NITROGEN 2.0 mg/dL (7-18)
--- NOTE | 2025-03-28 08:02 | NUR ---
RECEIVED REPORT FROM NIGHT RN - DEEPALI. PATIENT RESTING, MD ROUNDING THIS MORNING WHEN THIS RN IN ROOM. PATIENT WOULD LIKE TO DISCHARGE EARLY THIS MORNING, ASSESSMENT COMPLETED. C/O 7/10 PAIN BUT DENIES NEED FOR ADDITIONAL PAIN MEDS AT THIS TIME. PT UP TO BATHROOM, THIS RN PROVIDED WITH MEAL TICKET FOR BREAKFAST THIS MORNING. PT HAS F/U APPT SCHEDULED FOR DISCHARGE ALREADY. PAPERWORK READY AND WILL GO OVER WITH PATIENT SHORTLY.
[2025-03-28 08:58] VITALS: BP 112/63
--- NOTE | 2025-03-28 09:50 | NUR ---
Spoke with Anjelica. She is dressed and getting ready to dc. She and SO deny any other needs. They will remain homeless and living in their car. They have a list to call for rentals and do have the deposit. They will fu with this.
== END 2025-03-28 09:20 | disposition home or self-care (01) | DRG 439 ==
LOC: ED 08:32 → MS 12:44
PROVIDERS: Emergency Medicine; ADMIT Internal Medicine; ATTEND Internal Medicine
DX: K85.80 Other acute pancreatitis without necrosis or infection (principal); K86.3 Pseudocyst of pancreas; K86.1 Other chronic pancreatitis; F10.11 Alcohol abuse, in remission; E87.6 Hypokalemia; Z96.89 Presence of other specified functional implants
CPT/HCPCS: 36415; 74177; 80053; 81001; 83690; 83735; 84703; 85025; A9270; J1171; J2405; J7030; Q9967

== ENCOUNTER 2025-04-17 21:39 | Emergency (ER) | payer OTHER ==
[~2025-04-17] VITALS: Ht 180.3 cm; Wt 60.6 kg
--- OUTSIDE RECORDS SUMMARY | 2025-04-17 21:40 | XMS ---
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 Robe VISIT COUNT (12 MO.) 5 [facility] TOTAL 7 NOTE: Visits indicate total known visits. 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 TYPE: Emergency DIAGNOSES: - Anxiety disorder, unspecified - Palpitations - Tachycardia, unspecified - Headache - Vision Problems, Hands and feet cold 10/12/2024 21:48 [facility] TYPE: Emergency DIAGNOSES: - Acute pancreatitis without necrosis or infection, unspecified - Diarrhea, unspecified - Nausea with vomiting, unspecified - Abdominal Pain - Pancreatitis Flare up: abdominal pain INPATIENT VISIT TRACKING (12 MO.) 03/26/2025 12:44 [facility] [place] TYPE: Medical Surgical COMPLAINT: - ABDOMINAL PAIN DIAGNOSES: - Acute pancreatitis without necrosis or infection, unspecified - Alcohol abuse, in remission - Hypokalemia - Other acute pancreatitis without necrosis or infection - Other chronic pancreatitis - Presence of other specified functional implants - Pseudocyst of pancreas 02/26/2025 10:57 [facility] [place] TYPE: Medical Surgical COMPLAINT: - ACUTE [...] - Presence of other specified functional implants [email or web address]
[2025-04-17 22:20] LABS: BLOOD/HGB, URINE NEGATIVE (Negative); KETONE, URINE NEGATIVE (Negative); LEUK ESTERASE, URINE NEGATIVE (negative); NITRITE, URINE NEGATIVE (negative)
[2025-04-17 22:27] LABS: BASOPHILS 0.6 % (0.1-1.2); EOSINOPHILS 2.0 % (0.7-5.8); LYMPHOCYTES 28.8 % (19.3-51.7); MCH 30.6 PG (25.6-32.2); MCHC 33.2 g/dL (32.2-35.5); MCV 92.3 fL (79.4-94.8); MONOCYTES 5.8 % (4.7-12.5); NEUTROPHILS 62.6 % (34.0-71.1); RBC 4.70 M/uL (3.93-5.22)
[2025-04-17] MEDS ORDERED: MORPHINE SULFATE 4 MG/ML VIAL IV ONE (22:30)
[2025-04-17 22:43] LABS: ALT (SGPT) 21.0 U/L (14-59); AST (SGOT) 17.0 U/L (15-37); GLOMERULAR FILTRATION RATE,EST 116.0 mL/min (>60); PROTEIN, TOTAL 7.9 g/dL (6.4-8.2); UREA NITROGEN 11.0 mg/dL (7-18)
[2025-04-17] MEDS ORDERED: PANTOPRAZOLE SODIUM 40 MG/10 ML VIAL IV ONE (23:00)
[2025-04-17] MEDS ORDERED: LIDOCAINE & ANTACID 35 ML BTL PO ONE (23:00)
[2025-04-17] MEDS ORDERED: SUCRALFATE 1 GM TAB PO ONE (23:00)
[2025-04-17] MEDS ORDERED: TRAMADOL HCL50 MG PO (23:17)
[2025-04-17] MEDS ORDERED: PROTONIX40 MG PO (23:17)
[2025-04-17] MEDS ORDERED: CARAFATE1 GM PO (23:17)
[2025-04-17] MEDS ORDERED: TRAMADOL HCL 50 MG HOME.PACK PO ONE (23:30)
[2025-04-17 23:54] VITALS: BP 106/76
== END 2025-04-18 00:02 | disposition home or self-care (01) ==
LOC: ED 21:39
PROVIDERS: Family Medicine
DX: K29.70 Gastritis, unspecified, without bleeding (principal); Z79.899 Other long term (current) drug therapy
CPT/HCPCS: 36415; 80053; 81003; 83690; 83735; 84703; 85025; 96374; 96375; 99284-25; A9270; J2270; J2405; J2470